=== PATIENT | male | born 1965 | race Two or more races ===

== ENCOUNTER 2023-03-01 11:55 | Inpatient (IN) | payer OTHER ==
[2023-03-01 12:48] VITALS: BMI 23.2
[2023-03-01] MEDS ORDERED: NALOXONE HCL (KLOXXADO) 8 MG SPRAY NS PRN (16:29)
[2023-03-01] MEDS ORDERED: MAGNESIUM HYDROX 2400MG/30ML ORAL SUSPENSION 30 ML CUP PO PRN (16:29)
[2023-03-01] MEDS ORDERED: NICOTINE POLACRILEX 2 MG GUM BUC PRN (16:29)
[2023-03-01] MEDS ORDERED: diazePAM 5 MG TABLET PO PRN (16:29)
[2023-03-01] MEDS ORDERED: guaiFENesin 600 MG TABLET.ER (FP) PO PRN (16:29)
[2023-03-01] MEDS ORDERED: cloNIDine HCL 0.1 MG TABLET PO PRN (16:29)
[2023-03-01] MEDS ORDERED: methaDONE HCL 10 MG TABLET (FOR DETOX USE ONLY) PO ONE (16:29)
[2023-03-01] MEDS ORDERED: DICYCLOMINE HCL 10 MG CAPSULE PO PRN (16:29)
[2023-03-01] MEDS ORDERED: MAG HYDROX/AL HYDROX/SIMETH 30 ML UNIT-DOSE CUP PO PRN (16:29)
[2023-03-01] MEDS ORDERED: POLYETHYLENE GLYCOL (HEALTHYLAX) 3350 17 GM PACKET PO PRN (16:29)
[2023-03-01] MEDS ORDERED: LOPERAMIDE HCL 2 MG CAPSULE PO PRN (16:29)
[2023-03-01] MEDS ORDERED: BENZONATATE 200 MG CAPSULE PO PRN (16:29)
[2023-03-01] MEDS ORDERED: P-EPHED 60MG/TRIPROLIDI 2.5MG TABLET PO PRN (16:29)
[2023-03-01] MEDS ORDERED: NALOXONE HCL 0.4 MG/ML VIAL IM PRN (16:29)
[2023-03-01] MEDS ORDERED: ACETAMINOPHEN 325 MG TABLET (FP) PO PRN (16:29)
[2023-03-01] MEDS ORDERED: NICOTINE 10 MG CARTRIDGE (INHALER) IH PRN (16:29)
[2023-03-01] MEDS ORDERED: BENZOCAINE/MENTHOL (CHLORASEPTIC ) LOZENGE MM PRN (16:29)
[2023-03-01] MEDS ORDERED: methaDONE HCL 10 MG TABLET (FOR DETOX USE ONLY) ONE (17:41)
[2023-03-01] MEDS ORDERED: diazePAM 5 MG TABLET ONE (17:42)
[2023-03-01] MEDS: diazePAM 5 MG TABLET PO SCH ×2 (17:47→22:16)
[2023-03-01] MEDS ORDERED: MELATONIN 5 MG TABLETS PO SCH (22:00)
[2023-03-01] MEDS ORDERED: THIAMINE HCL 100 MG TABLET (FP) PO SCH (22:00)
[2023-03-01] MEDS: METHOCARBAMOL 500 MG TABLET PO PRN (22:14)
[2023-03-02] MEDS: diazePAM 5 MG TABLET PO SCH ×2 (05:27→10:12)
[2023-03-02] MEDS: METHOCARBAMOL 500 MG TABLET PO PRN (07:15)
[2023-03-02] MEDS ORDERED: PRENATAL VITAMINS W/ FOLIC ACID TABLET (FP) PO SCH (10:00)
[2023-03-02 11:41] LABS: HEMOGLOBIN 14.4 GM/dL (11.7-16.9); MCH 30.8 pg (25.7-33.7); MCHC 33.5 g/dl (32.0-35.9); MEAN CELL VOLUME 91.8 fl (80-96); MEAN PLT VOLUME 9.6 fl (7.5-11.1); PLATELET COUNT 279 10^3/uL (134-434); RBC 4.69 M/mm3 (4.00-5.60); WHITE BLOOD COUNT 7.1 K/mm3 (4.0-10.0)
[2023-03-02 11:43] LABS: POTASSIUM 4.3 mmol/L (3.5-5.1)
[2023-03-02 11:45] LABS: ALBUMIN 4.6 g/dl (3.4-5.0); BLOOD UREA NITROGEN 5.5 mg/dL (7-18); CALCIUM 9.9 mg/dL (8.5-10.1)
[2023-03-02 11:48] LABS: CREATININE 0.7 mg/dL (0.55-1.3)
[2023-03-02 11:50] LABS: BILIRUBIN,TOTAL 0.7 mg/dL (0.2-1); TOT PROT 8.3 g/dl (6.4-8.2)
[2023-03-02 14:03] VITALS: BP 150/89; PULSE 61; RESP 19; TEMP 98.8
[2023-03-02 14:41] LABS: HIV INTERPRETATION NEGATIVE (NEGATIVE)
[2023-03-03] MEDS ORDERED: diazePAM 5 MG TABLET PO SCH (06:00)
[2023-03-03] MEDS ORDERED: methaDONE HCL 10 MG TABLET (FOR DETOX USE ONLY) PO ONE (10:00)
[2023-03-04] MEDS ORDERED: diazePAM 5 MG TABLET PO SCH (06:00)
[2023-03-05] MEDS ORDERED: diazePAM 5 MG TABLET PO ONE (06:00)
[2023-03-05] MEDS ORDERED: methaDONE HCL 10 MG TABLET (FOR DETOX USE ONLY) PO ONE (10:00)
== END 2023-03-02 15:20 | disposition left against medical advice (07) | DRG 894 ==
LOC: YASAS 11:55 → Y3N 17:11
PROVIDERS: ADMIT Allergy & Immunology; ATTEND Surgery
PROC: HZ2ZZZZ Detoxification Services for Substance Abuse Treatment (ICD-10-PCS; principal; 2023-03-01)
DX: F11.23 Opioid dependence with withdrawal (principal); F13.230 Sedative, hypnotic or anxiolytic dependence with withdrawal, uncomplicated; F17.210 Nicotine dependence, cigarettes, uncomplicated; F25.9 Schizoaffective disorder, unspecified; F31.9 Bipolar disorder, unspecified; K21.9 Gastro-esophageal reflux disease without esophagitis; M54.50 Low back pain, unspecified; G89.29 Other chronic pain; Z86.19 Personal history of other infectious and parasitic diseases; Z88.6 Allergy status to analgesic agent
CPT/HCPCS: 36415; 80053; 85027; 86780; 87389; 87635; 93005; 93010